=== PATIENT | male | born 1955 | race Caucasian/White ===

== ENCOUNTER 2021-01-21 23:29 | Inpatient (IN) | payer OTHER ==
[~2021-01-21] VITALS: Ht 172.7 cm; Wt 54.0 kg
--- NOTE | 2021-01-21 23:46 | NUR ---
PT AAOX4. BIBSELF FROM HOME C/O L SIDED "TENSION" X1 DAY. NON RADIATING. PLACED IN BED 11 ON BREAK AND LOAD OPERATOR, AND PULSE OX. AWAITING ER MD FOR EVAL AND ORDERS.
--- NOTE | 2021-01-22 00:46 | NUR ---
COVID SWAB SENT TO LAB
[2021-01-22 01:13] LABS: BASOPHILS % (AUTO) 0.4 % (0.0-2.0); EOSINOPHILS % (AUTO) 6.1 % (0.0-6.0); HEMATOCRIT 47 % (39-51); HEMOGLOBIN 16.2 g/dL (13.5-17.5); LYMPHOCYTES # (AUTO) 1.5 K/uL (0.8-4.8); LYMPHOCYTES % (AUTO) 27.9 % (20.0-44.0); MEAN CORPUSCULAR HGB CONC 34 g/dl (31.0-36.0); MEAN CORPUSCULAR VOLUME 93 fL (80-96); MONOCYTES # (AUTO) 0.5 K/uL (0.1-1.30); MONOCYTES % (AUTO) 10.2 % (2.0-12.0); NEUTROPHILS # (AUTO) 2.9 K/uL (1.8-8.9); NEUTROPHILS % (AUTO) 55.4 % (43.0-81.0); PLATELET COUNT (AUTO) 202 K/uL (150-450); RED BLOOD CELL COUNT(AUTO) 5.08 MIL/uL (4.5-6.0); WHITE BLOOD COUNT (AUTO) 5.2 K/uL (4.3-11.0)
[2021-01-22 01:23] LABS: CALCIUM, SERUM 8.7 mg/dL (8.5-10.1); CARBON DIOXIDE 29 mmol/L (21-32); CHLORIDE 104 mmol/L (98-107); GLUCOSE 165 mg/dL (74-106); POTASSIUM 3.5 mmol/L (3.5-5.1); SODIUM SERUM 140 mmol/L (136-145); UREA NITROGEN, BLOOD 18 mg/dL (7-18)
[2021-01-22 01:28] LABS: ALANINE AMINOTRANSFERASE 28 U/L (12-78); ALBUMIN 3.5 g/dL (3.4-5.0); ALKALINE PHOSPHATASE 74 U/L (46-116); ASPARTATE AMINOTRANSFERASE 21 U/L (15-37); BILIRUBIN,DIRECT 0.1 mg/dL (0.0-0.2); BILIRUBIN,TOTAL 0.4 mg/dL (0.2-1.0); TOTAL PROTEIN, SERUM 7.5 g/dL (6.4-8.2)
[2021-01-22] MEDS ORDERED: Z GUARD REMEDY 2 OZ OINT TP PRN (01:30)
[2021-01-22] MEDS ORDERED: ACETAMINOPHEN 325 MG TABLET PO PRN (01:30)
[2021-01-22] MEDS ORDERED: HYDROCODONE/APAP 5/325MG TABLET PO PRN (01:30)
[2021-01-22] MEDS ORDERED: MORPHINE SULFATE INJ 2 MG/ML DISP.SYRIN IV PRN (01:30)
[2021-01-22] MEDS ORDERED: NITROGLYCERIN 0.4 MG/TAB BOTTLE SL PRN ×2 (01:30→15:30)
[2021-01-22] MEDS ORDERED: MAG HYDROX/AL HYDROX/SIMETH 30 ML UDC PO PRN (01:30)
[2021-01-22] MEDS ORDERED: MAGNESIUM HYDROXIDE 30 ML UDC PO PRN (01:30)
[2021-01-22] MEDS ORDERED: TEMAZEPAM 15 MG CAPSULE PO PRN (01:30)
[2021-01-22] MEDS ORDERED: ONDANSETRON HCL/PF 4 MG/2 ML VIAL IVP PRN (01:30)
[2021-01-22] MEDS ORDERED: ASPIRIN 81 MG TAB.CHEW ONE ×2 (02:20→08:06)
[2021-01-22] MEDS ORDERED: ASPIRIN 81 MG TAB.CHEW PO ONE (02:30)
--- NOTE | 2021-01-22 04:47 | NUR ---
Patient is resting comfortably in bed with eyes closed. Easily aroused. VSS
[2021-01-22] MEDS ORDERED: PANTOPRAZOLE 40 MG TABLET.DR PO ONE (08:05)
[2021-01-22] MEDS: ASPIRIN 81 MG TAB.CHEW PO SCH (08:10)
[2021-01-22] MEDS: PANTOPRAZOLE 40 MG TABLET.DR PO SCH (08:10)
--- NOTE | 2021-01-22 08:11 | NUR ---
PATIENT A/OX4, BREATHING EVEN AND UNLABORED, NO SOB NOTED, NEEDS ATTENDED. KEPT COMFORTABLE.
[2021-01-22] MEDS ORDERED: TAMS-12 PO (08:18)
[2021-01-22] MEDS ORDERED: HYDR-500 PO (08:18)
[2021-01-22] MEDS ORDERED: ASPI-1169 PO (08:18)
[2021-01-22] MEDS ORDERED: AMLO-213 PO (08:18)
[2021-01-22] MEDS ORDERED: hydrOXYzine PAMOATE 25 MG CAPSULE PO PRN (09:00)
[2021-01-22] MEDS ORDERED: ASPIRIN 81 MG TAB.CHEW PO SCH (09:00)
[2021-01-22] MEDS ORDERED: AMLODIPINE BESYLATE 10 MG TABLET ONE (09:16)
[2021-01-22] MEDS: AMLODIPINE BESYLATE 10 MG TABLET PO SCH (09:19)
--- NOTE | 2021-01-22 09:45 | NUR ---
TELE/RN RECEIVING NOTES RECEIVED PATIENT FROM ER. PATIENT IS ALERT AND ORIENTED X4, ABLE TO MAKE NEEDS KNOWN. SKIN IS INTACT. STABLE OMN ROOM AIR. AMBULATORY. ON TELEMONITOR READING OF SINUS FERNANDO 58. IV ACCESS ON LEFT AC #20G INTACT AND PATENT ON SALINE LOCK. ORIENTED PATIENT ON THE UNIT. EDUCATED PATIENT REGARDING CHESTPAIN/ANGINA. SAFETY MEASURES IN PLACED: BED LOCKED ON LOWEST POSITION, SIDE RAILS UPX2, CALL LIGHT WITHIN EASY REACH. WILL CONTINUE TO MONITOR PATIENT.
--- NOTE | 2021-01-22 09:46 | NUR ---
REPORT GIVEN TO NAHUN. PATIENT TRANSFERRED VIA ACLS PROTOCOL, IN STABLE CONDITION.
[2021-01-22 10:00] VITALS: BP 136/79
[2021-01-22] MEDS ORDERED: METOPROLOL TARTRATE INJ 5 MG/5 ML AMPUL IVP PRN (15:30)
[2021-01-22] MEDS ORDERED: IOHEXOL-350 100 ML VIAL IV ONE (15:41)
[2021-01-22] MEDS ORDERED: IV NS 0.9% 250 ML IV ONE (15:41)
[2021-01-22 16:00] VITALS: BP 132/69
[2021-01-22] MEDS ORDERED: NITROGLYCERIN 0.4 MG/TAB BOTTLE ONE (16:27)
[2021-01-22] MEDS ORDERED: METOPROLOL TARTRATE INJ 5 MG/5 ML AMPUL ONE (16:27)
[2021-01-22] MEDS ORDERED: POLYVINYL ALCOHOL 15 ML BOTTLE EACHEYE PRN (16:30)
--- NOTE | 2021-01-22 19:10 | NUR ---
SOFTWARE SALES MANAGER OPENING NOTE RECEIVED PT AWAKE IN BED, A/OX4, ABLE TO VERBALIZE NEEDS. RESP EVEN/UNLABORED. ON ROOM AIR. HE DENIES ANY PAIN OR DISCOMFORT AT THIS TIME. IV SITE: L-AC #20 INTACT/PATENT/FLUSHES WELL. ON TELE MONITOR, READING SB 55. NO C/O OF ANY CARDIAC DISTRESS. SAFETY MEASURES IN PLACE, BED IN LOWEST LOCKED POSITION, S/R UPX2, CALL LIGHT WITHIN REACH. WILL CONT TO MONITOR.
--- NOTE | 2021-01-22 19:18 | NUR ---
TELE/RN CLOSING NOTES PATIENT IN BED, IS ALERT AND ORIENTED X4, ABLE TO MAKE NEEDS KNOWN. SKIN IS INTACT. STABLE ON ROOM AIR. AMBULATORY. ON TELEMONITOR READING OF SR 60'S. IV ACCESS ON LEFT AC #20G INTACT AND PATENT ON SALINE LOCK. CT ANGIOGRAM DONE EARLIER AWAITING RESULT. ALL NEEDS MET. SAFETY MEASURES IN PLACED: BED LOCKED ON LOWEST POSITION, SIDE RAILS UPX2, CALL LIGHT WITHIN EASY REACH. WILL ENDORSE TO THE NEXT SHIFT FOR AMINA.
[2021-01-22 20:00] VITALS: BP 132/78
[2021-01-22] MEDS ORDERED: TAMSULOSIN 0.4 MG CAP.SR.24H PO SCH (22:00)
[2021-01-23] VITALS: BP 111/54
[2021-01-23 04:00] VITALS: BP 109/57
[2021-01-23 06:16] LABS: BASOPHILS % (AUTO) 0.3 % (0.0-2.0); EOSINOPHILS % (AUTO) 3.6 % (0.0-6.0); HEMATOCRIT 47 % (39-51); HEMOGLOBIN 16.1 g/dL (13.5-17.5); LYMPHOCYTES # (AUTO) 1.4 K/uL (0.8-4.8); LYMPHOCYTES % (AUTO) 24.6 % (20.0-44.0); MEAN CORPUSCULAR HGB CONC 34 g/dl (31.0-36.0); MEAN CORPUSCULAR VOLUME 93 fL (80-96); MONOCYTES # (AUTO) 0.5 K/uL (0.1-1.30); MONOCYTES % (AUTO) 8.4 % (2.0-12.0); NEUTROPHILS # (AUTO) 3.6 K/uL (1.8-8.9); NEUTROPHILS % (AUTO) 63.1 % (43.0-81.0); PLATELET COUNT (AUTO) 192 K/uL (150-450); RED BLOOD CELL COUNT(AUTO) 5.09 MIL/uL (4.5-6.0); WHITE BLOOD COUNT (AUTO) 5.7 K/uL (4.3-11.0)
--- NOTE | 2021-01-23 06:43 | NUR ---
SERVICE VEHICLE OPERATOR CLOSING NOTE PT RESTING IN BED, EASILY AWAKENS TO STIMULI. A/OX4. NO SOB. NO C/O PAIN/DISCOMFORT. IV SITE: L-AC #20 INTACT/PATENT/FLUSHES WELL. TELE MONITOR READING SR, HR 65. HE DENIES ANY CHEST PAIN. NO ACUTE EVENTS DURING THE NIGHT NOTED. SAFETY MEASURES MAINTAINED.
[2021-01-23 07:22] LABS: CALCIUM, SERUM 8.7 mg/dL (8.5-10.1); MAGNESIUM 2.5 mg/dL (1.8-2.4); PHOSPHORUS 3.4 mg/dL (2.5-4.9); POTASSIUM 3.5 mmol/L (3.5-5.1)
--- NOTE | 2021-01-23 07:22 | NUR ---
LIFT SUPERVISOR OPENING NOTES RECEIVED PT IN BED, ASLEEP, EASILY AWAKEN BY VERBAL AND TACTILE STIMULI. BREATHING EVEN/UNLABORED. ON ROOM AIR. HE DENIES ANY PAIN OR DISCOMFORT AT THIS TIME. IV SITE: L-AC #20 INTACT/PATENT/FLUSHES WELL. ON TELE MONITOR, READING SR HR AT 60'S. NO C/O OF ANY CARDIAC DISTRESS. SAFETY MEASURES IN PLACE, BED IN LOWEST LOCKED POSITION, S/R UPX2, CALL LIGHT WITHIN REACH. WILL CONTINUE TO MONITOR ACCORDINGLY.
[2021-01-23] MEDS: PANTOPRAZOLE 40 MG TABLET.DR PO SCH (07:28)
[2021-01-23 07:42] LABS: THYROID STIMULATING HORMONE 2.795 uIU/mL (0.358-3.74)
[2021-01-23 08:00] VITALS: BP 106/64
[2021-01-23] MEDS: ASPIRIN 81 MG TAB.CHEW PO SCH (08:25)
[2021-01-23 08:26] VITALS: BP 106/64
[2021-01-23] MEDS: AMLODIPINE BESYLATE 10 MG TABLET PO SCH (08:26)
[2021-01-23] MEDS ORDERED: ATOR20TA PO (08:42)
--- NOTE | 2021-01-23 09:40 | NUR ---
CAR OILER NOTES DISCHARGED PATIENT IN STABLE CONDITION. VITAL SIGNS WITHIN NORMAL LIMITS. HOME MEDICATIONS AND INSTRUCTIONS PROVIDED TO PATIENT, INSTRUCTED ON FOLLOW UP, PATIENT VERBALIZED UNDERSTANDING. IV ACCCESS REMOVED, COVERED WITH GAUZE, NO BLEEDING NOTED. ARMBAND REMOVED. ASSISTED TO LOBBY BY LAURA (ADILIA). LEFT UNIT IN STABLE CONDITION. MD AND CHARGE NURSE AWARE OF DISCHARGE.
== END 2021-01-23 09:35 | disposition home or self-care (01) | DRG 198 ==
LOC: ER 23:51 → TRANSITION 01-22 03:03 → TELE 01-22 08:09 → MED 01-23 08:27
PROVIDERS: ADMIT Internal Medicine; ATTEND Internal Medicine
DX: I25.119 Atherosclerotic heart disease of native coronary artery with unspecified angina pectoris (principal); E78.5 Hyperlipidemia, unspecified; I10 Essential (primary) hypertension; Z86.16 Personal history of COVID-19; Z20.822 Contact with and (suspected) exposure to COVID-19; N40.0 Benign prostatic hyperplasia without lower urinary tract symptoms; F41.9 Anxiety disorder, unspecified
CPT/HCPCS: 36415; 71045-TC; 75574; 80048-TC; 80061-TC; 80076-TC; 83735-TC; 84100-TC; 84443-TC; 84484-TC; 85025-TC; 87081-TC; 93307-TC; G0378; J2270; J2405; J3490; J7050; Q9967

== ENCOUNTER 2023-09-23 11:49 | Emergency (ER) | payer OTHER ==
[~2023-09-23] VITALS: Ht 172.7 cm; Wt 64.9 kg
[~2023-09-23 11:49] MED LIST: AMLO-213 PO; ASPI-1169 PO; ATOR20TA PO; HYDR-500 PO; TAMS-12 PO
[2023-09-23 12:37] LABS: BASOPHILS % (AUTO) 0.3 % (0.0-2.0); EOSINOPHILS # (AUTO) 0.1 K/uL (0.0-0.7); EOSINOPHILS % (AUTO) 1.6 % (0.0-6.0); HEMATOCRIT 47 % (39-51); HEMOGLOBIN 16.4 g/dL (13.5-17.5); LYMPHOCYTES # (AUTO) 0.9 K/uL (0.8-4.8); LYMPHOCYTES % (AUTO) 19.5 % (20.0-44.0); MEAN CORPUSCULAR HEMOGLOBIN 31 PG (26.0-33.0); MEAN CORPUSCULAR HGB CONC 35 g/dl (31.0-36.0); MEAN CORPUSCULAR VOLUME 90 fL (80-96); MONOCYTES # (AUTO) 0.4 K/uL (0.1-1.30); MONOCYTES % (AUTO) 7.6 % (2.0-12.0); NEUTROPHILS # (AUTO) 3.3 K/uL (1.8-8.9); PLATELET COUNT (AUTO) 217 K/uL (150-450); RED BLOOD CELL COUNT(AUTO) 5.29 MIL/uL (4.5-6.0); RED CELL DISTRIBUTION WIDTH 12.9 % (11.5-15.0); WHITE BLOOD COUNT (AUTO) 4.6 K/uL (4.3-11.0)
[2023-09-23 12:53] LABS: CALCIUM, SERUM 9.2 mg/dL (8.5-10.1); CARBON DIOXIDE 31 mmol/L (21-32); CHLORIDE 101 mmol/L (98-107); CREATININE 1.1 mg/dL (0.6-1.3); GLUCOSE 112 mg/dL (74-106); POTASSIUM 3.6 mmol/L (3.5-5.1); SODIUM SERUM 137 mmol/L (136-145); UREA NITROGEN, BLOOD 13 mg/dL (7-18)
[2023-09-23 13:51] VITALS: BP 105/68; TEMP 98.4; O2SAT 97
== END 2023-09-23 14:03 | disposition home or self-care (01) ==
LOC: ER 11:56
DX: R07.89 Other chest pain (principal); I10 Essential (primary) hypertension; Z98.890 Other specified postprocedural states; Z79.899 Other long term (current) drug therapy; Z60.2 Problems related to living alone
CPT/HCPCS: 36415; 71045-TC; 80048-TC; 84484-TC; 85025-TC